=== PATIENT | female | born 1970 | race Caucasian/White ===

== ENCOUNTER → 2016-05-15 | Outpatient (CLI) | payer OTHER | LOC: BHSO 13:48 | DX: F31.81 Bipolar II disorder (principal) | CPT/HCPCS: 90791-AI ==

== ENCOUNTER → 2016-06-21 | Outpatient (CLI) | payer OTHER | LOC: BHSO 14:17 | DX: F31.81 Bipolar II disorder (principal) ==

== ENCOUNTER → 2016-08-20 | Outpatient (CLI) | payer OTHER | LOC: BHSO 14:51 | DX: F41.1 Generalized anxiety disorder (principal) ==